=== PATIENT | female | born 1970 | race African-American/Black ===

== ENCOUNTER 2019-04-04 18:10 | Observation (INO) | payer SELFPAY ==
[~2019-04-04 18:10] MED LIST: Iopamidol-370 76% 500 ML 1 ML ONE
[2019-04-04] MEDS ORDERED: Morphine 4 MG/ML VIAL ONE ×2 (18:32→21:02)
[2019-04-04] MEDS ORDERED: Ondansetron PF 4 MG/2 ML Vial ONE (18:32)
[2019-04-04] MEDS ORDERED: diphenhydrAMINE 50 MG/ML VIAL ONE (19:16)
[2019-04-04] MEDS ORDERED: Famotidine/PF 20 mg/2ml Vial ONE (19:16)
[2019-04-04 19:21] LABS: Hemoglobin 13.4 g/dL (12.0-16.0); Mean Corpuscular HGB CONC 34.7 g/dL (32.0-36.0); Mean Corpuscular Hemoglobin 28.8 pg (27.0-31.0); Mean Corpuscular Volume 82.9 fL (78.0-98.0); Red Blood Cell (RBC) Count 4.65 mill/uL (4.20-5.40); White Blood Cell (WBC) Count 7.3 thou/uL (4.8-10.8)
[2019-04-04 19:25] LABS: Band 1 % (5-11); Eosinophils 4 % (0-10); Lymphocytes 33 % (21-51); MDiff Complete? YES; Mean Platelet Volume 7.8 fL (7.4-10.4); Monocytes 5 % (0-10); Neutrophil 57 % (42-75); Platelet Count 233 thou/uL (130-400); Platelet Morphology Comment Appears Adequate; RBC Morphology Normal
[2019-04-04 19:31] LABS: ALT (SGPT) 40 U/L (8-55); AST (SGOT) 34 U/L (5-34); Albumin 4.4 g/dL (3.5-5.0); Alkaline Phosphatase 93 U/L (40-110); Anion Gap 16 mmol/L (10-20); BUN (Urea Nitrogen) 13 mg/dL (7.0-18.7); Bilirubin, Total 0.2 mg/dL (0.2-1.2); Calc. Creatinine Clearance 0 mL/min (70-130); Calcium 9.1 mg/dL (7.8-10.44); Carbon Dioxide 17 mmol/L (22-29); Chloride 107 mmol/L (98-107); Estimated GFR-MDRD 79; Glucose 119 mg/dL (70-105); Potassium 4.8 mmol/L (3.5-5.1); Protein, Total 8.4 g/dL (6.0-8.3); Sodium 135 mmol/L (136-145)
[2019-04-04] MEDS ORDERED: methylPREDNISolone Sod Succ/PF 125 MG/2 ML VIAL ONE (19:41)
[2019-04-04 19:42] LABS: INR-International Normal Ratio 0.9; PTT 26.4 SEC (22.9-36.1); Prothrombin Time 12.4 SEC (12.0-14.7)
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
[2019-04-04] MEDS ORDERED: Ketorolac Tromethamine 30 MG/ML VIAL ONE (21:02)
[2019-04-04 21:49] LABS: CKMB 0.6 ng/mL (0-6.6)
[2019-04-04] MEDS ORDERED: Aspirin Chewable 81 MG TAB ONE (22:46)
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
[2019-04-05] MEDS ORDERED: Ondansetron ODT 4 MG TAB PO PRN (00:50)
[2019-04-05] MEDS ORDERED: Dextrose 50% Abboject 50 ML SYRINGE SLOW IVP PRN (00:50)
[2019-04-05] MEDS ORDERED: Dextrose 5% in Water 1,000 ML IV PRN (00:50)
[2019-04-05] MEDS ORDERED: HYDROcodone/Acetaminophen 5/325 mg Tablet PO PRN ×2 (00:50)
[2019-04-05] MEDS ORDERED: Ondansetron PF 4 MG/2 ML Vial IVP PRN (00:50)
[2019-04-05] MEDS ORDERED: hydrALAZINE 20 MG/ML VIAL SLOW IVP PRN (00:50)
[2019-04-05 01:12] VITALS: BMI 34.0
[2019-04-05] MEDS ORDERED: clonazePAM 1 MG TAB PO PRN (03:30)
[2019-04-05] MEDS ORDERED: Nitroglycerin 0.4 MG TAB (25 Tab Bottle) SL SCH (03:30)
[2019-04-05 04:03] LABS: #Lymphocytes 0.9 thou/uL (1.20-3.40); #Monocytes 0.1 thou/uL (0.11-0.59); %Basophils 0.3 % (0.0-1.0); %Eosinophils 0.1 % (0.0-10.0); %Monocytes 1.1 % (0.0-10.0); %Neutrophils 83.5 % (42.0-75.0); Hemoglobin 12.8 g/dL (12.0-16.0); Mean Corpuscular HGB CONC 33.8 g/dL (32.0-36.0); Mean Corpuscular Hemoglobin 28.2 pg (27.0-31.0); Mean Corpuscular Volume 83.5 fL (78.0-98.0); Mean Platelet Volume 7.1 fL (7.4-10.4); Platelet Count 255 thou/uL (130-400); RBC Distribution Width 12.7 % (11.5-14.5); Red Blood Cell (RBC) Count 4.54 mill/uL (4.20-5.40)
[2019-04-05 04:41] LABS: Anion Gap 11 mmol/L (10-20); BUN (Urea Nitrogen) 12 mg/dL (7.0-18.7); Calc. Creatinine Clearance 128 mL/min (70-130); Calcium 8.9 mg/dL (7.8-10.44); Carbon Dioxide 20 mmol/L (22-29); Chloride 108 mmol/L (98-107); Estimated GFR-MDRD 90; Glucose 194 mg/dL (70-105); Potassium 4.3 mmol/L (3.5-5.1); Sodium 135 mmol/L (136-145)
[2019-04-05 04:44] LABS: Troponin I Less than 0.010 ng/mL (< 0.028)
[2019-04-05] MEDS: Morphine 2 MG/ML SYRINGE SLOW IVP PRN ×2 (04:48→09:15)
[2019-04-05 08:01] VITALS: BP 137/61; TEMP 97.7
[2019-04-05] MEDS ORDERED: Losartan 25 MG TAB PO SCH (09:00)
[2019-04-05] MEDS ORDERED: hydrOXYzine 25 MG TAB PO SCH (09:00)
[2019-04-05] MEDS ORDERED: Famotidine 20 MG TAB PO SCH (09:00)
[2019-04-05] MEDS ORDERED: Clopidogrel Bisulfate 75 MG TAB PO SCH (09:00)
[2019-04-05] MEDS ORDERED: Aspirin 81 mg Enteric Coated Tablet PO SCH ×2 (09:00→21:00)
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
[2019-04-05] MEDS ORDERED: Zolpidem Tartrate 5 MG TAB PO SCH (21:00)
[2019-04-05] MEDS ORDERED: Atorvastatin Calcium 40 MG TAB PO SCH (21:00)
[2019-04-05] MEDS ORDERED: Mirtazapine 15 MG TAB PO SCH (21:00)
== END 2019-04-05 11:42 | disposition home or self-care (01) ==
LOC: ERS 18:10 → 2SW 04-05 00:42
PROVIDERS: ADMIT Surgery; ATTEND Surgery
DX: S22.42XA Multiple fractures of ribs, left side, initial encounter for closed fracture (principal); G89.11 Acute pain due to trauma; I25.10 Atherosclerotic heart disease of native coronary artery without angina pectoris; I10 Essential (primary) hypertension; E78.5 Hyperlipidemia, unspecified; F41.9 Anxiety disorder, unspecified; F31.9 Bipolar disorder, unspecified; F43.10 Post-traumatic stress disorder, unspecified; F17.290 Nicotine dependence, other tobacco product, uncomplicated; I25.2 Old myocardial infarction; Z79.82 Long term (current) use of aspirin; Z79.899 Other long term (current) drug therapy; Z88.2 Allergy status to sulfonamides; Z88.5 Allergy status to narcotic agent; Z88.8 Allergy status to other drugs, medicaments and biological substances; Z91.041 Radiographic dye allergy status; Z95.5 Presence of coronary angioplasty implant and graft; V49.59XA Passenger injured in collision with other motor vehicles in traffic accident, initial encounter
CPT/HCPCS: 36415; 36416; 70450; 71260; 72125; 74177; 80048; 80053; 82553; 84484; 85025; 85610; 85730; 93005; 96361; 96374; 96375; 96376; G0378; G0390; J1200; J1885; J2270; J2405; J2930; Q9967; S0028